=== PATIENT | male | born 1965 | race Hispanic/Latino ===

== ENCOUNTER 2019-12-25 | Emergency (ER) | payer OTHER, BC ==
[~2019-12-25] MED LIST: KEFLEX500 MG OR; VICODIN ES1 TAB OR
[2019-12-25] MEDS ORDERED: MELOXICAM7.5 MG PO (01:19)
[2019-12-25 05:19] LABS: HEMATOCRIT 37.6 % (39.0-50.0); HEMOGLOBIN 12.8 g/dl (14.0-18.0); IMMATURE GRANULOCYTES 1.5 % (0.0-5.0); MEAN CELL VOLUME 96.7 fL CALC (80.0-100.0); MEAN CORPUSCULAR HGB 32.9 pG CALC (26.0-32.0); NEUT# 4.56 thou/uL (1.82-7.42); RED BLOOD COUNT 3.89 mill/uL (4.70-6.10); RED CELL DISTRI WIDTH 13.2 % (11.5-15.5)
[2019-12-25 05:20] LABS: URINE BILIRUBIN - DIPSTICK NEGATIVE (NEGATIVE); URINE BLOOD DIPSTICK NEGATIVE (NEGATIVE); URINE COLOR YELLOW; URINE GLUCOSE - DIPSTICK NEGATIVE (NEGATIVE); URINE KETONE NEGATIVE (NEGATIVE); URINE LEUK ESTERASE NEGATIVE (NEGATIVE); URINE NITRITE - DIPSTICK NEGATIVE (Negative); URINE PROTEIN - DIPSTICK NEGATIVE (NEG-TRACE); URINE SPECIFIC GRAVITY 1.015; URINE UROBILINOGEN - DIPSTICK 0.2 E.U./dL (0.2)
[2019-12-25 05:32] LABS: ALBUMIN 4.3 g/dL (3.2-5.0); ALKALINE PHOSPHATASE 66 u/l (38-126); AMYLASE 94 u/l (30-110); ANION GAP 10 (6-22 (CALC)); BILIRUBIN, TOTAL 0.7 mg/dL (0.0-1.4); BUN 19 mg/dL (9-20); BUN/CREATININE RATIO 21 (12-20 (CALC)); CARBON DIOXIDE 29 mmol/l (22-30); CHLORIDE 102 mmol/l (95-108); CREATININE 0.9 mg/dL (0.7-1.3); GFR > 60 ML/MIN (>=60 (CALC)); GFR FOR AFR.AMER. > 60 ML/MIN (>=60 (CALC)); LIPASE 285 u/l (23-300); POTASSIUM 4.6 mmol/l (3.5-5.1); SGOT/AST 29 u/l (17-59); SODIUM 137 mmol/l (137-146); TOTAL PROTEIN 8.2 g/dL (6.3-8.2)
== END 2019-12-25 05:50 | disposition short-term general hospital (02) | DRG 566 ==
PROVIDERS: Emergency Medicine
DX: M89.9 Disorder of bone, unspecified (principal); M54.5 Low back pain